=== PATIENT | female | born 1940 | race Two or more races ===

== ENCOUNTER 2017-11-18 07:24 | Outpatient (CLI) | payer OTHER | END 2017-11-18 07:31 | disposition home or self-care (01) | LOC: SONOGRAMA 07:24 | DX: E04.1 Nontoxic single thyroid nodule (principal) ==

== ENCOUNTER 2021-11-23 08:55 | Outpatient (CLI) | payer OTHER | END 2021-11-23 08:58 | disposition home or self-care (01) | LOC: SONOGRAMA 08:55 | PROVIDERS: ATTEND Pathology Anatomic Pathology & Clinical Pathology | DX: E03.8 Other specified hypothyroidism (principal) ==

== ENCOUNTER 2024-12-31 06:15 | Day surgery (SDC) | payer OTHER ==
[2024-12-31] MEDS ORDERED: DIPHENHYDRAMINE HCL 50 MG/ML VIAL 1ML IV ONE (11:45)
[2024-12-31] MEDS ORDERED: MIDAZOLAM HCL 2 MG/2 ML VIAL IV ONE (11:45)
[2024-12-31] MEDS ORDERED: fentaNYL CITRATE 50 MCG/ML AMPUL IV PUSH ONE (11:45)
== END 2024-12-31 13:00 | disposition home or self-care (01) ==
LOC: AMB-ENDOS 06:15
PROVIDERS: ATTEND Internal Medicine
DX: D12.2 Benign neoplasm of ascending colon (principal); D12.3 Benign neoplasm of transverse colon; D12.4 Benign neoplasm of descending colon; D12.5 Benign neoplasm of sigmoid colon; K57.30 Diverticulosis of large intestine without perforation or abscess without bleeding; R19.5 Other fecal abnormalities; R19.4 Change in bowel habit